=== PATIENT | male | born 1940 ===

== ENCOUNTER 2017-09-27 06:31 | Day surgery (SDC) | payer MEDICARE, OTHER ==
[~2017-09-27 06:31] MED LIST: Acetaminophen TAB* 325 MG PO PRN; Buffered Lidocaine 0.9% SYRIN* 5 ML/SYR SYRINGE INTRADERM ONE
[2017-09-27] MEDS ORDERED: Midazolam* 1 MG/ML 2 ML VIAL (2 MG) ONE (07:26)
[2017-09-27] MEDS ORDERED: acetaZOLAMIDE TAB* 250 MG ONE (07:57)
[2017-09-27] MEDS ORDERED: Lidocaine 2% EPI 1:200000 MPF*10-20 ML VIAL ONE (07:57)
[2017-09-27] MEDS ORDERED: Phenylephrine 2.5% OPTH.SOL* 2 ML BTL ONE (07:57)
[2017-09-27] MEDS ORDERED: Ketorolac 0.5% OPHTH (NF) 0.5 % 5 ML BTL ONE (07:57)
[2017-09-27] MEDS ORDERED: Neomycin/Polymy/Dex OPTH.SUSP* MAXITROL 0.1% 5 ML ONE (07:57)
[2017-09-27] MEDS ORDERED: Cyclopentolate 1% OPTH.SOL* 2 ML BTL ONE (07:57)
[2017-09-27] MEDS ORDERED: Povidone Iodine 5% OPTH* 30 ML BTL ONE (07:57)
[2017-09-27] MEDS ORDERED: Lidocaine 1% MPF* 2 ML VIAL ONE (07:57)
[2017-09-27] MEDS ORDERED: Proparacaine 0.5% OPHTH.SOL* 15 ML BTL ONE (07:58)
[2017-09-27 08:48] VITALS: BP 128/55
--- NOTE | 2017-09-27 11:25 | OP ---
OPERATIVE NOTE: DATE OF OPERATION: 09/27/17 - [facility] DATE OF : 38 SURGEON: Arjun Gordillo M.D. PREOPERATIVE DIAGNOSIS: Cataract, right eye. POSTOPERATIVE DIAGNOSIS: Cataract, right eye. OPERATIVE PROCEDURE: Extracapsular cataract extraction with IOL implant right eye. PROCEDURE: The patient was brought to the operating room after being given 1/2 % Alcaine with epinephrine drops in the preoperative area. The eye was prepped and draped in the usual sterile fashion. Sterile drape and eyelid speculum were placed. Again, topical 1/2% Alcaine with epinephrine was given. A paracentesis incision was made at the 9 o'clock position with the No.75 blade. Clear cornea incision 2.2 x 2.2-mm was created at the 12 o'clock position starting at the anterior limbus using the 2.2-mm keratome. The anterior chamber was irrigated with 0.4 mL of 1% non-preservative intracameral lidocaine and filled with DisCoVisc. A capsulorrhexis was completed using the cystotome and the Utrata forceps. Hydrodissection was performed with balanced salt solution. The lens nucleus was removed with the Phacoemulsification handpiece without incident. Cortex was removed with the irrigation-aspiration handpiece. The capsular bag was re-inflated using DisCoVisc and an SN60WF 17.5 implant was inserted with the shooter. The pupil was only 4 mm, so a Malyugin ring was used to dilate the pupil prior to capsulorrhexis, removed after insertion of the lens. The irrigation-aspiration handpiece was used to remove all residual DisCoVisc. The eye was refilled with balanced salt solution and the wound checked and found to be watertight. Topical Maxitrol drops were given. Indication for complex cataract surgery, iris abnormalities requiring pupil dilation device. [id number]/[facility] #: [id number] [facility]
== END 2017-09-27 09:00 | disposition home or self-care (01) ==
LOC: OREAST 06:31
PROVIDERS: ATTEND Specialist
DX: H25.811 Combined forms of age-related cataract, right eye (principal); Q13.2 Other congenital malformations of iris; H01.021 Squamous blepharitis right upper eyelid; H01.022 Squamous blepharitis right lower eyelid; H01.024 Squamous blepharitis left upper eyelid; H01.025 Squamous blepharitis left lower eyelid; Z87.891 Personal history of nicotine dependence; I25.10 Atherosclerotic heart disease of native coronary artery without angina pectoris; G47.33 Obstructive sleep apnea (adult) (pediatric); I10 Essential (primary) hypertension
CPT/HCPCS: A9270-GY; J2250; V2632

== ENCOUNTER 2017-10-04 10:08 | Day surgery (SDC) | payer MEDICARE, OTHER ==
[~2017-10-04 10:08] MED LIST changes: +Cyclopentolate 1% OPTH.SOL* 2 ML BTL ONE; +Ketorolac 0.5% OPHTH (NF) 0.5 % 5 ML BTL ONE; +Lidocaine 1% MPF* 2 ML VIAL ONE; +Lidocaine 2% EPI 1:200000 MPF*10-20 ML VIAL ONE; +Neomycin/Polymy/Dex OPTH.SUSP* MAXITROL 0.1% 5 ML ONE; +Phenylephrine 2.5% OPTH.SOL* 2 ML BTL ONE; +Povidone Iodine 5% OPTH* 30 ML BTL ONE; +Proparacaine 0.5% OPHTH.SOL* 15 ML BTL ONE; +acetaZOLAMIDE TAB* 250 MG ONE
[2017-10-04] MEDS ORDERED: Midazolam* 1 MG/ML 5 ML VIAL (5 MG) ONE (11:17)
[2017-10-04] MEDS ORDERED: fentaNYL* 50 MCG/ML 2 ML VIAL (100 MCG VIAL) ONE (11:17)
[2017-10-04 12:58] VITALS: BP 133/72
--- NOTE | 2017-10-04 14:54 | OP ---
DATE OF OPERATION: 10/04/2017 - [facility] DATE OF : 1940. SURGEON: Arjun Gordillo M.D. PREOPERATIVE DIAGNOSIS: Cataract left eye. POSTOPERATIVE DIAGNOSIS: Cataract left eye. OPERATIVE PROCEDURE: Extracapsular cataract extraction with intraocular lens implant left eye. DESCRIPTION OF PROCEDURE: The patient was brought to the operating room after being given 1/2% Alcaine with epinephrine drops in the preoperative area. The eye was prepped and draped in the usual sterile fashion. Sterile drape and eyelid speculum were placed. Again, topical 1/2% Alcaine with epinephrine was given. A paracentesis incision was made at the 3 o'clock position with the No.75 blade. Clear cornea incision 2.2 x 2.2-mm was created at the 6 o'clock position starting at the anterior limbus using the 2.2-mm keratome. The anterior chamber was irrigated with 0.4 mL of 1% non-preservative intracameral lidocaine and filled with DisCoVisc. A capsulorrhexis was completed using the cystotome and the Utrata forceps. Hydrodissection was performed with balanced salt solution. The lens nucleus was removed with the Phacoemulsification handpiece without incident. Cortex was removed with the irrigation-aspiration handpiece. The capsular bag was re-inflated using DisCoVisc and an SN60WF 17.5 implant was inserted with the shooter. The irrigation-aspiration handpiece was used to remove all residual DisCoVisc. The eye was refilled with balanced salt solution and the wound checked and found to be watertight. Topical Maxitrol drops were given. [id number]/[facility] #: [id number] [facility]
== END 2017-10-04 12:59 | disposition home or self-care (01) ==
LOC: OREAST 10:08
PROVIDERS: ATTEND Specialist
DX: H25.812 Combined forms of age-related cataract, left eye (principal); H01.021 Squamous blepharitis right upper eyelid; H01.022 Squamous blepharitis right lower eyelid; H01.024 Squamous blepharitis left upper eyelid; H01.025 Squamous blepharitis left lower eyelid; Z87.891 Personal history of nicotine dependence; G47.33 Obstructive sleep apnea (adult) (pediatric); I25.10 Atherosclerotic heart disease of native coronary artery without angina pectoris; Z95.1 Presence of aortocoronary bypass graft; R73.01 Impaired fasting glucose; I11.9 Hypertensive heart disease without heart failure
CPT/HCPCS: A9270-GY; J2250; J3010; V2632

== ENCOUNTER 2021-01-28 12:26 | Inpatient (IN) ==
[2021-01-28 14:38] LABS: ABS Basophils 0.1 10^3/ul (0-0.2); ABS Eosinophils 0.1 10^3/ul (0-0.6); ABS Lymphocytes 0.9 10^3/ul (1.0-4.8); ABS Monocytes 0.6 10^3/ul (0-0.8); Eosinophil % 0.7 %; Hematocrit 43 % (42-52); Hemoglobin 14.6 g/dL (14.0-18.0); Lymphocyte % 9.9 %; Mean Corpuscular HGB Conc 34 g/dL (31-36); Mean Corpuscular Hemoglobin 31 pg (27-31); Mean Corpuscular Volume 92 fL (80-94); Mean Platelet Volume 8.3 fL (7.4-10.4); Nucleated Red Blood Cells % 0.1; Platelet Count 192 10^3/uL (150-450); Red Blood Count 4.66 10^6 /uL (4.18-5.48); Red Cell Distribution Width 13 % (10-15); White Blood Count 8.7 10^3/uL (3.5-10.8)
[2021-01-28 14:45] LABS: INR 1.26 (0.86-1.15)
[2021-01-28 14:55] LABS: Albumin 3.9 g/dL (3.2-5.2); Albumin/Globulin Ratio 1.4 (1-3); Calcium 9.3 mg/dL (8.6-10.3); EGFR African American 80.3 (>60); EGFR Non-African American 66.3 (>60); Globulin 2.8 g/dL (2-4); Total Bilirubin 1.1 mg/dL (0.2-1.0); Total Protein 6.7 g/dL (6.4-8.9)
[2021-01-28 14:56] LABS: Troponin I 0.01 ng/mL (<0.03)
[2021-01-28 18:14] LABS: TSH Ultra Thyroid Stim Horm 1.95 mcIU/mL (0.34-5.60)
[2021-01-28] MEDS: Enoxaparin 40 MG/0.4 ML SYR SUBCUT SCH (18:14)
[2021-01-28] MEDS: Haloperidol 5 mg/ml SDV IV/IM 5 MG/ML AMP IV SLOW PU PRN (19:03)
[2021-01-29 04:31] LABS: ABS Basophils 0.1 10^3/ul (0-0.2); ABS Eosinophils 0.1 10^3/ul (0-0.6); ABS Lymphocytes 1.4 10^3/ul (1.0-4.8); ABS Monocytes 0.8 10^3/ul (0-0.8); ABS Neutrophils 5.3 10^3/ul (1.5-7.7); Eosinophil % 1.5 %; Hematocrit 37 % (42-52); Hemoglobin 13.2 g/dL (14.0-18.0); Lymphocyte % 18.1 %; Mean Corpuscular HGB Conc 36 g/dL (31-36); Mean Corpuscular Hemoglobin 32 pg (27-31); Mean Corpuscular Volume 90 fL (80-94); Platelet Count 212 10^3/uL (150-450); Red Blood Count 4.11 10^6 /uL (4.18-5.48); Red Cell Distribution Width 13 % (10-15); White Blood Count 7.7 10^3/uL (3.5-10.8)
[2021-01-29 04:36] LABS: Calcium 8.8 mg/dL (8.6-10.3); INR 1.31 (0.86-1.15); Potassium 3.8 mmol/L (3.5-5.0)
[2021-01-29 04:42] LABS: EGFR African American 80.3 (>60); EGFR Non-African American 66.3 (>60); Phosphorus 3.7 mg/dL (2.5-5.0)
[2021-01-29] MEDS: Haloperidol 5 mg/ml SDV IV/IM 5 MG/ML AMP IV SLOW PU PRN ×2 (05:09→17:09)
[2021-01-29] MEDS ORDERED: Senna TAB 8.6 mg TAB PO PRN (09:22)
[2021-01-29] MEDS: Enoxaparin 40 MG/0.4 ML SYR SUBCUT SCH (21:22)
[2021-01-30] MEDS: Haloperidol 5 mg/ml SDV IV/IM 5 MG/ML AMP IV SLOW PU PRN ×2 (01:53→08:19)
[2021-01-30 13:13] VITALS: BP 110/69
== END 2021-01-30 12:14 | disposition swing bed (61) | DRG 309 ==
LOC: ICU 14:09
PROVIDERS: ADMIT Internal Medicine Critical Care Medicine; ATTEND Internal Medicine Critical Care Medicine